=== PATIENT | male | born 2000 | race Caucasian/White ===

== ENCOUNTER 2024-11-13 14:44 | Emergency (ER) | payer OTHER | END 2024-11-13 18:01 | disposition home or self-care (01) | LOC: JP.ED 14:44 | DX: S90.31XA Contusion of right foot, initial encounter (principal); W20.8XXA Other cause of strike by thrown, projected or falling object, initial encounter; Y99.0 Civilian activity done for income or pay | CPT/HCPCS: 73630-RT; 99283 ==